=== PATIENT | male | born 1935 | race Caucasian/White ===

== ENCOUNTER 2019-07-27 05:24 | Day surgery (SDC) | payer MEDICARE, OTHER, SELFPAY ==
[2019-07-23 08:00] VITALS: BMI 26.9
[2019-07-27 05:52] VITALS: BP 121/69; PULSE 82; RESP 16; TEMP 36.7; O2SAT 97; BMI 26.4
[2019-07-27] MEDS: Lactated Ringers 1,000 ML 100 ML IV (06:16)
--- NOTE | 2019-07-27 06:26 | PCM.HP.BLA ---
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 Is patient in pain?: No Allergies No Known Allergies Allergy (Unverified 07/23/19 08:01) Medications amlodipine 10 mg tablet PO #90 tab 07/23/19 [History Confirmed 07/23/19] aspirin 81 mg tablet,delayed release 81 mg PO DAILY 07/23/19 [History Confirmed 07/23/19] lisinopril 20 mg-hydrochlorothiazide 12.5 mg tablet PO #90 tab 07/23/19 [History Confirmed 07/23/19] metformin 1,000 mg tablet PO #180 tab 07/23/19 [History Confirmed 07/23/19] simvastatin 20 mg tablet PO #90 tab 07/23/19 [History Confirmed 07/23/19] PFSH Medical History Diabetes (Acute) High cholesterol (Acute) HTN (hypertension) (Chronic) Surgical History H/O removal of cyst (Acute) Family History Grandfather Diabetes Social History (Updated 07/23/19 @ 08:11 by Salas Goyal MD) Smoking Status: Former smoker alcohol intake: never HPI HPI HPI: QASIM ROSALES, is a 83 M who presents to the office today for HPI HPI Surgical H&P: Yes HPI: QASIM ROSALES, is a 83 M who presents to the office today for surgical consultation regarding recent onset of rectal bleeding. The patient was referred by his primary care is Dr. Brody Goyal iii third and written compromise surgical consult recommendations will return to him. The patient states that initially noticed what he thought was some pretty dark red material in the commode and on the tissue paper. On a subsequent episode it seemed to be more bright red. He could not feel any palpable mass. Did not detect any reducible hemorrhoid. Did not have any pain. He has not had a heart attack or stroke. He himself has been on a low-dose aspirin. That has subsequently been stopped. He likes eating his donuts. He likes strawberry shortcake and peach cobbler. He has not had any abdominal surgery. He has not had any bouts of diverticular disease. He has not had any unexpected weight loss. ROS General General: No weight change, appetite, fatigue, colon cancer, breast cancer or weakness HEENT HEENT: No difficulty swallowing, eye injury, eye surgery, swollen glands or hoarseness Endo Endocrine: Yes diabetes mellitus; no thyroid disease, thyroid cancer, Hair loss, heat intolerance or cold intolerance Skin Skin: No rash or changing moles Breast Breast: No left breast lump, right breast lump, nipple discharge, breast pain, abnormal mammogram, abnormal US or breast enlargement Musc Musculoskeletal: Yes arthritis; no back problems, rheumatoid arthritis, gout or joint pain Cardio Cardiovascular: Yes high blood pressure; no murmur, pacemaker, heart disease, atrial fibrillation, heart attack, heart stent, palpitations, shortness of breat with exertion or chest pain Psych Psychiatric: No depression, anxiety or hearing voices Resp Respiratory: Yes shortness of breath, No sleep apnea, No cough, No COPD, No asthma, No emphysema, No wheezing Gastro Gastrointestinal: No abdominal pain, No nausea or vomiting, Yes diarrhea, No constipation, Yes blood in stool, Yes acid reflux, Yes hemorrhoids, No ulcers, No gallbladder problem, No black,tarry stools Philippe Hematologic: No blood thinners, No blood disorders, Yes bleeding, No anemia, No blood clots Neuro Neurologic: No system reviewed and no additional complaints, except as docu, No as per HPI, No abnormal walking, No abnormal hearing, No abnormal movements, No abnormal speech, No behavioral changes, No burning sensations, No confusion, No seizure-like activity, No unsteadiness, No dizziness, No localized weakness, No frequent falls, No headache(s), No lack of coordination, No loss of vision, No memory loss, No numbness, No other visual disturbances, No radiating pain, No restless legs, No sensory deficit, No fainting, No tingling, No tremor(s), No weakness, No other Exam Const General: cooperative, healthy appearing, comfortable, no acute distress Nutritional Appearance: average body habitus Orientation: alert, awake, oriented x3 HENMT Head: normal to inspection Chest Chest palpation & inspection: normal inspection of the chest Breast Palpation: No nipple discharge Resp Effort & Inspection: normal respiratory effort Auscultation: clear to auscultation bilaterally Cardio Rate: regular rate Rhythm: regular rhythm Heart Sounds: no murmurs GI Palpation: soft, no hepatosplenomegaly Auscultation: normal bowel sounds Neuro Cognition: normal cognition Other: Hard of hearing Extrem General: no calf tenderness bilaterally Psych Affect: normal affect Assessment & Plan Problems 1. Rectal bleeding K62.5 Plan 83-year-old gentleman. His previous colonoscopy was performed by myself June 28, 2014. At that point I noted a small polyp of the cecum. He had multiple diverticula noted throughout the entire colon. The cecal polyp simply showed colonic mucosa with lymphoid aggregate no evidence of dysplasia. I recommended the patient a colonoscopy with possible biopsy or polypectomy as indicated. On his previous examination it required 100 mg [place] 5 mg of Versed. We will on this occasion utilize monitored anesthesia care. He is aware of the technique, benefits, risks and alternatives. The patient has automatically stopped his low-dose aspirin. He denies history of cardiac or central neurologic disease. It may be reasonable that he stay off the aspirin long-term. He is instructed to follow-up that question with Dr. Brody Goyal III. CC: Dr. Brody Goyal III I appreciate the opportunity of assisting with surgical care Salas Goyal M.D., F.A.C.S. Coding Level of Care Code 34606 Diagnoses Rectal bleeding K62.5 07/23/19 0811 <Electronically signed by Salas Goyal MD> Date Salas Goyal MD Cosigner Signature: Date (if applicable) CC: Brody Goyal III, MD ~ I have re-examined the patient. There are no clinical changes since date of exam.
--- NOTE | 2019-07-27 06:30 | COLBX_PTH ---
PATIENT: QASIM ROSALES LOC: EN U#:[id number] AGE/SX: 83/M ROOM: RE07/27/[address]: Dr. Salas Goyal MD : 1935 BED: DIS: 07/27/2019 SPEC #: [id number] RECD: 07/27/19 12:16 STATUS: MAI WES #: [id number] CHRISTOPHER: 07/27/19 06:[address]: Salas Goyal DEPT: SURGICAL PATHOLOGY RECD BY: Chikis Natarajan ENTERED: 07/27/19 13:01 SP TYPE: COLON BX OTHR DR: Dr. Brody Goyal III, MD Tissues: Rectum, NOS Procedures: Surgery Specimen Level IV HEADER OPERATION: Colonoscopy (MAC) PRE-OP DIAGNOSIS: Rectal bleeding TISSUE SUBMITTED: Proximal rectum polyp MICROSCOPIC DIAGNOSIS Proximal rectal polyp, biopsy: Tubular adenoma. AM:sada 07/28/19 MICROSCOPIC DESCRIPTION Slides are reviewed. GROSS DESCRIPTION Received in fixative is one container labeled with the patient's name and designated proximal rectum polyp. The specimen consists of one irregular fragment of light castro soft tissue that measures 0.5 x 0.4 x 0.1 cm. The specimen is totally submitted in one cassette. A few fragments of fecal material are also noted. The specimen is totally submitted in one cassette. / SJ:rg 07/27/19 TC:5 [facility]: [id number]
[2019-07-27 06:55] VITALS: BP 121/69; BP 131/69; PULSE 64; RESP 18; TEMP 36.4; O2SAT 95
--- NOTE | 2019-07-27 06:59 | OP.ENDO_ITS ---
07/27/2019 Brody Goyal [address] [place] [address] Re : Colonoscopy procedure for Nic Emerson Dear Dr. Goyal This procedure was performed on Saturday, July 27, 2019. My impressions and recommendations are as follows: Impressions : - Non-thrombosed external hemorrhoids, non-thrombosed internal hemorrhoids, internal hemorrhoids that prolapse with straining, but require manual replacement into the anal canal (Grade III) and enlarged prostate found on digital rectal exam. - One 4 mm polyp in the rectum, removed with a cold snare. Resected and retrieved. - Diverticulosis in the entire examined colon. Recommendations : - Discharge patient to home. - Resume previous diet. - Continue present medications. - Repeat colonoscopy in 5 years for surveillance based on pathology results. - Telephone my office for pathology results in 1 week. Internal hemorrhoids likely source of rectal bleeding. Bleeding has stopped since he has been off the aspirin. Consider office followu if surgical treatment of hemorrhoids desired (ppH hemorrhoidopexy) My findings are described in the full procedure note, which is enclosed. If I can be of further assistance, please feel free to contact me at Doctor phone number(s): Work: . Sincerely, Salas Goyal MD 07/27/2019 6:59:06 AM This report has been signed electronically.
[2019-07-27 07:00] VITALS: BP 121/69; BP 126/68; PULSE 66; RESP 18; O2SAT 95
[2019-07-27 07:05] VITALS: BP 121/69; BP 128/74; RESP 18; O2SAT 97
[2019-07-27 07:06] LABS: Bedside Glucose 155 mg/dL (70-110)
[2019-07-27 07:10] VITALS: BP 121/69; BP 125/65; PULSE 67; RESP 18; TEMP 36.6; O2SAT 97
[2019-07-27 07:20] VITALS: BP 121/69
== END 2019-07-27 07:36 | disposition home or self-care (01) ==
LOC: EN 05:24 → AC 05:25
PROVIDERS: Family Provider Family Medicine; PCP Family Medicine; Referring Provider Family Medicine; Visit Provider Surgery
PROC: 0DJD8ZZ Inspection of Lower Intestinal Tract, Via Natural or Artificial Opening Endoscopic (ICD-10-PCS; CPT 45378; principal; 2019-07-27 06:25)
DX: D12.8 Benign neoplasm of rectum (principal); K64.2 Third degree hemorrhoids; K57.30 Diverticulosis of large intestine without perforation or abscess without bleeding; E11.9 Type 2 diabetes mellitus without complications; I10 Essential (primary) hypertension; E78.00 Pure hypercholesterolemia, unspecified; Z87.891 Personal history of nicotine dependence; Z79.84 Long term (current) use of oral hypoglycemic drugs; Z79.82 Long term (current) use of aspirin; Z79.899 Other long term (current) drug therapy; Z86.010 Personal history of colon polyps
CPT/HCPCS: 45380; 82962; 88305; J7120

== ENCOUNTER 2020-11-17 09:32 | Outpatient (RCR) | payer MEDICARE, OTHER, SELFPAY | END 2020-11-17 23:59 | LOC: IMMUN 09:32 | PROVIDERS: PCP Family Medicine; Visit Provider Family Medicine | DX: Z23 Encounter for immunization (principal) | CPT/HCPCS: 0011A; 0012A; 91301 ==

== ENCOUNTER 2021-11-07 13:06 | Outpatient (CLI) | payer MEDICARE, OTHER, SELFPAY | END 2021-11-07 23:59 | disposition short-term general hospital (02) | LOC: LABSPEC 13:08 | PROVIDERS: Referring Provider Physician Assistant Surgical; Visit Provider Physician Assistant Surgical | DX: Z11.52 Encounter for screening for COVID-19 (principal) | CPT/HCPCS: 87635; U0003; U0005 ==

== ENCOUNTER 2023-02-15 10:56 | Outpatient (CLI) | payer MEDICARE, OTHER, SELFPAY ==
[2023-02-15 12:15] LABS: Absolute Lymphocyte Count 1.45 X10^3/uL (0.83-4.51); Absolute Neutrophil Count 4.6 X10^3/uL (2.0-7.7); Basophil# 0.07 X10^3/uL; Eosinophil# 0.19 X10^3/uL; Eosinophils% 2.8 % (0-5); Hematocrit 46.9 % (40-54); Hemoglobin 15.6 g/dL (13.0-16.5); Lymphocyte # 1.45 X10^3/ul (0.83-4.51); Lymphocyte % 21.3 % (19-41); Mean Corp Hgb Conc 33.3 g/dL (32-36); Mean Corpuscular Hgb 30.7 pg (27.0-32.0); Mean Corpuscular Volume 92.3 fL (80-94); Mean Platelet Vol. 11.5 fl (6.2-12.0); Monocyte# 0.45 X10^3/uL; Monocyte% 6.6 % (0-10); NRBC Flagged by Analyzer 0 % (0-5); Neutrophil # 4.64 X10^3/uL (2.7-7.7); Platelet Count 170 K/mm3 (150-450); RBC Distribution Width CV 12.5 % (11.6-14.6); RBC Distribution Width SD 42.7 fl (35.1-43.9); Red Blood Count 5.08 M/mm3 (4.6-6.2); White Blood Count 6.8 K/mm3 (4.4-11.0)
[2023-02-15 12:25] LABS: Bacteria 0 SEEN /hpf (None Seen); Mucous, Urine 0 SEEN /hpf (<or=2+); Red Blood Cells-Urine 0 SEEN /hpf (0-5); Squamous Epithelial Cells - UA 0 SEEN /hpf (0-5); White Blood Cells 0 SEEN /hpf (0-5)
[2023-02-15 12:49] LABS: PTHIN 50.8 pg/mL (18.4-80.1)
[2023-02-15 12:51] LABS: Vitamin D,25 Hydroxy 53.8 ng/mL
[2023-02-15 12:56] LABS: Hemoglobin A1c 7.4 % (3.8-5.6)
[2023-02-15 13:05] LABS: ALB/GLOB Ratio 1.2 RATIO (0.9-2.4); AST(SGOT) 22 U/L (15-37); Alanine Aminotransfer ALT/SGPT 35 U/L (16-61); Albumin, Serum 4.1 g/dL (3.2-5.0); Alkaline Phosphatase 40 U/L (45-117); Anion Gap 7 (5-15); BUN 22 mg/dL (7-18); BUN/Creat Ratio 15.9 RATIO (10-20); Calcium,Total 9.4 mg/dL (8.5-10.1); Chloride 104 mmol/L (98-107); Cholesterol 176 mg/dL (200); Creatinine, Serum 1.38 mg/dL (0.70-1.30); EST Glomerular Filtration Rate 52 mL/min (>60); Est Glom Filt Rate - Afr Amer 63 mL/min (>60); Globulin 3.3 g/dL (2.2-4.2); Glucose 142 mg/dL (74-106); High Density Lipoprotein 58 mg/dL; Phosphorus 2.9 mg/dL (2.5-4.9); Potassium 3.7 mmol/L (3.5-5.1); Protein, Total 7.4 g/dL (6.4-8.2); Sodium Level 135 mmol/L (136-145); Thyroid Stim Hormone (TSH) 2.92 uIU/mL (0.358-3.74); Triglycerides 171 mg/dL; Very Low Density Lipoprotein 34 mg/dL (5-40)
[2023-02-15 15:54] LABS: Color, Urine Yellow (Yellow); Glucose, Dipstick Normal (Normal); Ketone-Dipstick Negative (Negative); Leukocyte Esterase-Dipstick Negative /ul (Negative); Nitrite-Dipstick Negative (Negative); Occult Blood-Urine Negative /ul (Negative); Protein-Dipstick Negative (Negative); Specific Gravity, Urine 1.015 (1.002-1.030); Urine Bilirubin Dipstick Negative (Negative); Urine Clarity Clear (Clear); Urine Urobilinogen Normal (Normal)
[2023-02-15 16:35] LABS: Microalbumin,Random Urine 35.3 mg/L (NO RANGE EST.); Microalbumin:Creatinine Ratio 32.7 mg/g CRE (<30 mg/g CRE); Protein:Creat Ratio 139 mg/g CRE (0-200)
[2023-03-31 08:08] LABS: PSA, Free 1.92 ng/mL; PSA, Free % 30.2 % (.)
== END 2023-02-15 23:59 | disposition home or self-care (01) ==
LOC: MFPLAB 10:57
PROVIDERS: Visit Provider Family Medicine
DX: E11.22 Type 2 diabetes mellitus with diabetic chronic kidney disease (principal); N18.30 Chronic kidney disease, stage 3 unspecified; R97.20 Elevated prostate specific antigen [PSA]
CPT/HCPCS: 36415; 80053; 80061; 81001; 82043; 82306; 82570; 83036; 83970; 84100; 84153; 84154; 84156; 84443; 85025

== ENCOUNTER → 2023-03-28 | Outpatient (CLI) | payer MEDICARE, OTHER, SELFPAY | END | disposition home or self-care (01) | LOC: MFPLAB 11:49 | PROVIDERS: PCP Family Medicine; Visit Provider Family Medicine | DX: Z00.00 Encounter for general adult medical examination without abnormal findings (principal) ==

== ENCOUNTER → 2023-07-11 | Outpatient (CLI) | payer MEDICARE, OTHER, SELFPAY ==
--- NOTE | 2023-07-11 16:29 | RAD_ITS ---
EXAM: XR CHEST, 2 VIEWS CLINICAL INDICATION: BRONCHITIS TECHNIQUE: Frontal and lateral views of the chest. COMPARISON: No relevant prior studies available. FINDINGS: LUNGS AND PLEURAL SPACES: Unremarkable. No consolidation or edema. No pneumothorax. No effusion. HEART: Unremarkable. Cardiac silhouette not enlarged. MEDIASTINUM: Central airways and mediastinal contour are unremarkable. BONES/JOINTS: Unremarkable. SOFT TISSUES: Unremarkable. RAD/Chest PA and Lateral IMPRESSION: No radiographic evidence of acute cardiopulmonary disease. Electronically Signed: Kris Nichols MD at 18:18 EDT ,
[2023-07-11 16:31] LABS: Bacteria 0 SEEN /hpf (None Seen); Mucous, Urine 0 SEEN /hpf (<or=2+); Red Blood Cells-Urine 0 SEEN /hpf (0-5); Squamous Epithelial Cells - UA 0 SEEN /hpf (0-5)
[2023-07-11 17:50] LABS: Color, Urine Yellow (Yellow); Glucose, Dipstick Normal (Normal); Ketone-Dipstick Negative (Negative); Leukocyte Esterase-Dipstick 25 /ul (Negative); Nitrite-Dipstick Negative (Negative); Occult Blood-Urine Negative /ul (Negative); Protein-Dipstick 15 mg/dl (Negative); Urine Bilirubin Dipstick Negative (Negative); Urine Clarity Clear (Clear); Urine Urobilinogen 1 mg/dl (Normal)
[2023-07-11 18:08] LABS: White Blood Cells 0-5 SEEN /hpf (0-5)
[2023-07-11 18:20] LABS: ALB/GLOB Ratio 1.1 RATIO (0.9-2.4); AST(SGOT) 15 U/L (15-37); Alanine Aminotransfer ALT/SGPT 30 U/L (16-61); Albumin, Serum 4.1 g/dL (3.2-5.0); Alkaline Phosphatase 45 U/L (45-117); Anion Gap 5 (5-15); BUN 26 mg/dL (7-18); BUN/Creat Ratio 15.7 RATIO (10-20); CRP < 2.90 mg/L (0.0-3.0); Calcium,Total 9.6 mg/dL (8.5-10.1); Chloride 109 mmol/L (98-107); Cholesterol 126 mg/dL (200); Creatinine, Serum 1.66 mg/dL (0.70-1.30); EST Glomerular Filtration Rate 42 mL/min (>60); Est Glom Filt Rate - Afr Amer 51 mL/min (>60); Globulin 3.7 g/dL (2.2-4.2); Glucose 112 mg/dL (74-106); High Density Lipoprotein 45 mg/dL; Phosphorus 3.6 mg/dL (2.5-4.9); Protein, Total 7.8 g/dL (6.4-8.2); Sodium Level 141 mmol/L (136-145); Triglycerides 199 mg/dL; Very Low Density Lipoprotein 40 mg/dL (5-40)
[2023-07-11 18:24] LABS: Absolute Lymphocyte Count 1.81 X10^3/uL (0.83-4.51); Absolute Neutrophil Count 4.9 X10^3/uL (2.0-7.7); Basophil# 0.04 X10^3/uL; Basophil% 0.5 % (0-1); Eosinophil# 0.27 X10^3/uL; Eosinophils% 3.6 % (0-5); Hematocrit 47.4 % (40-54); Hemoglobin 15.2 g/dL (13.0-16.5); Lymphocyte # 1.81 X10^3/ul (0.83-4.51); Lymphocyte % 23.8 % (19-41); Mean Corp Hgb Conc 32.1 g/dL (32-36); Mean Corpuscular Hgb 29.9 pg (27.0-32.0); Mean Corpuscular Volume 93.1 fL (80-94); Mean Platelet Vol. 11.4 fl (6.2-12.0); Monocyte# 0.58 X10^3/uL; Monocyte% 7.6 % (0-10); NRBC Flagged by Analyzer 0 % (0-5); Neutrophil # 4.88 X10^3/uL (2.7-7.7); Neutrophil % 64.2 % (47-70); Platelet Count 205 K/mm3 (150-450); RBC Distribution Width CV 12.3 % (11.6-14.6); RBC Distribution Width SD 42.4 fl (35.1-43.9); Red Blood Count 5.09 M/mm3 (4.6-6.2); White Blood Count 7.6 K/mm3 (4.4-11.0)
[2023-07-11 18:46] LABS: Vitamin D,25 Hydroxy 45.7 ng/mL
[2023-07-11 19:49] LABS: Microalbumin:Creatinine Ratio 12.9 mg/g CRE (<30 mg/g CRE); Protein, Urine (Random) 12.7 mg/dL (<11.9); Protein:Creat Ratio 63 mg/g CRE (0-200)
== END | disposition home or self-care (01) ==
LOC: MTLAB 16:27
PROVIDERS: PCP Family Medicine; Visit Provider Family Medicine
DX: J40 Bronchitis, not specified as acute or chronic (principal); E11.65 Type 2 diabetes mellitus with hyperglycemia; E11.22 Type 2 diabetes mellitus with diabetic chronic kidney disease; E55.9 Vitamin D deficiency, unspecified; N18.9 Chronic kidney disease, unspecified
CPT/HCPCS: 71046; 80053; 80061; 81001; 82043; 82306; 82570; 83036; 84100; 84156; 85025; 86140

== ENCOUNTER → 2023-08-07 | Outpatient (CLI) | payer MEDICARE, OTHER, SELFPAY ==
--- NOTE | 2023-08-08 10:00 | PFT ---
INTRODUCTION: The patient is an 87-year-old male who presents for pulmonary function studies secondary to a diagnosis of cough. Respiratory therapy reported good patient effort. Bronchodilators were used during testing. INTERPRETATION: Forced expiration spirometry demonstrates the presence of a mild large airways obstructive ventilatory defect. There was no significant response to aerosolized bronchodilators. Body plethysmography was performed and revealed an elevated RV to 129% of predicted, suggestive of underlying air trapping. Diffusing capacity by single breath CO was within normal limits. IMPRESSION: Irreversible mild large airways obstructive ventilatory defect with associated air trapping.
== END | disposition home or self-care (01) ==
LOC: PSN 07:51
PROVIDERS: PCP Family Medicine; Referring Provider Family Medicine; Visit Provider Family Medicine
DX: R05.9 Cough, unspecified (principal)
CPT/HCPCS: 94060; 94726; 94729

== ENCOUNTER 2023-10-23 09:05 | Emergency (ER) | payer MEDICARE, OTHER, SELFPAY ==
[2023-10-23 09:05] VITALS: BP 123/66; PULSE 80; RESP 16; TEMP 36.5; O2SAT 95; BMI 27.3
--- NOTE | 2023-10-23 09:16 | RAD_ITS ---
STUDY: X-RAY CHEST REASON FOR EXAM: Male, 87 years old. Cough. TECHNIQUE: Frontal and lateral views of the chest. COMPARISON: July 11, 2023 FINDINGS: Stable hyperinflation with hyperlucency. There is no demonstrated pleural abnormality. Mild cardiomegaly unchanged. Normal mediastinum and felisa. Normal visualized pulmonary arteries. Stable aortic tortuosity with calcification. Diffuse mild thoracic spondylosis unchanged. Normal visualized ribs, clavicles, and shoulders. There is no demonstrated abnormality of the visualized soft tissue structures of the upper abdomen. RAD/Chest PA and Lateral IMPRESSION: Stable mild cardiomegaly with hyperinflation and hyperlucency. No active or acute cardiopulmonary disease. Electronically Signed: José Garcia MD at 9:43 EST ,
--- NOTE | 2023-10-23 09:17 | EX.ED.VIS.UR ---
HPI HPI - URI History of Present Illness Chief Complaint: Cold Sx Narrative Narrative: 87-year-old male past medical history of hypertension, hypercholesterolemia presents with 1 day of upper respiratory infection type symptoms. He presents with his who states that she was here a few days ago and was diagnosed with pneumonia. They state that also a few days ago they spent all day at the [facility] and now everyone is sick . This includes her daughter as well. Patient complains of cough with loose phlegm production. He denies any fevers and may have been chilled last evening. He may also have minor shortness of breath. He denies any exacerbating or alleviating symptoms. ROS ROS ED ROS Narrative Constitutional: No fever, slight chills. HEENT: No sore throat. No neck pain. No loss of vision. Rhinorrhea and nasal congestion Cardiovascular: No chest pain. No palpitations. No pedal edema. Respiratory: Today have occasionally productive cough, minimal shortness of breath. Abdominal: No abdominal pain. No nausea. No vomiting. Genitourinary: No dysuria. No hematuria. Musculoskeletal: No myalgias. No arthralgias. Neurologic: No headaches. No dizziness. No lightheadedness. Skin: No rash. No change in color. Psychiatric: No depression. No anxiety. [facility] Medical History (Updated 10/23/23 @ 10:37 by Adriano Meehan MD) Diabetes High cholesterol HTN (hypertension) Rectal bleeding Home Medications amlodipine 10 mg tablet 10 mg PO DAILY #90 tabs 07/23/19 [History Last Taken 07/27/19] aspirin 81 mg tablet,delayed release 81 mg PO DAILY 07/23/19 [History Last Taken 07/19/19] lisinopril 20 mg-hydrochlorothiazide 12.5 mg tablet 20 mg PO DAILY #90 tabs 07/23/19 [History Last Taken Unknown] metformin 1,000 mg tablet 1,000 mg PO BID #180 tabs 07/23/19 [History Last Taken Unknown] simvastatin 20 mg tablet 20 mg PO QHS #90 tabs 07/23/19 [History Last Taken Unknown] Allergy/AdvReac Type Severity Reaction Status Date / Time No Known Allergies Allergy Verified 07/27/19 05:49 Family History Grandfather Diabetes Surgical History H/O removal of cyst Social History Smoking Status: Former smoker alcohol intake: never EXAM Physical Exam Narrative Exam Narrative: Afebrile. Vital signs noted. HEENT: Normocephalic. Atraumatic. PERRL, EOMI. Neck soft and supple. No point tenderness or step off. Cardiovascular: Regular rate and rhythm. No murmurs, rubs, or gallops appreciated. Respiratory: No tachypnea. No expiratory wheeze right base. Moving a good amount of air. Speaking in full sentences. Gastrointestinal: Abdomen soft, nontender, with normoactive bowel sounds. No rebound or guarding. Neurological: Awake. Alert. Nonfocal, nonlateralizing. Skin: No rash. Normal color. No pallor. Musculoskeletal: No pedal edema. Full range of motion extremities. Const Vital Signs: 10/23/23 09:05 10/23/23 09:05 10/23/23 09:45 Temperature 97.7 F L Temperature Source Temporal Pulse Rate 80 Respiratory Rate 16 Respiratory Effort Short of Breath Respiratory Pattern Normal Blood Pressure 123/66 H Blood Pressure Mean 85 Pulse Ox 95 96 Oxygen Delivery Method Room Air Room Air MDM MDM MDM Narrative Medical decision making narrative: Concern is for bronchitis versus pneumonia versus viral syndrome. Patient will be given albuterol MDI. No feel laboratory work is indicated, but two-view chest x-ray will be obtained as well as COVID and influenza swab. Chest x-ray interpreted by myself independently shows no evidence of pneumonia or consolidation, no pneumothorax. I reviewed the radiology report which confirms my independent interpretation. Additionally, I reviewed his respiratory swabs and he is positive for COVID. I do not feel antibiotics are indicated. At this point in time, upon repeat examination, he states he feels better than he did last night. I feel he be discharged safely home with follow-up. I do not feel he requires Decadron at this time, I do not feel he requires admission for his COVID. Treatment will be symptomatic. Return instructions to the emergency department were reviewed. Disposition is discharged home in stable condition. History & Record Review Discussion w/independent historian: Patient and Family () Additional record(s) reviewed:: No prior records Lab Data Attestation: I reviewed the patient's lab results. Lab results narrative: COVID-positive Radiography Diagnostic Testing: Clinical Impression(s) from Imaging Studies Chest X-Ray 10/23/23 09:16 IMPRESSION: Stable mild cardiomegaly with hyperinflation and hyperlucency. No active or acute cardiopulmonary disease. Electronically Signed: José Garcia MD at 9:43 EST , Discharge Plan Triage Chief Complaint: Cold Sx ED Provider: Adriano Meehan Dx/Rx/DC Orders Clinical Impression: COVID, Viral syndrome Instructions: Coronavirus Disease 2019 (COVID-19): Prevention, Coronavirus Disease 2019 (COVID-19): Caring for Yourself or Others, ED Viral Syndrome (Adult) Prescriptions: No Action metformin 1,000 mg tablet 1,000 mg PO BID Qty: 180 Patient Comments: TAKE 1 TABLET BY MOUTH TWICE DAILY amlodipine 10 mg tablet 10 mg PO DAILY Qty: 90 Patient Comments: TAKE 1 TABLET BY MOUTH ONCE DAILY lisinopril-hydrochlorothiazide 20-12.5 mg tablet 20 mg PO DAILY Qty: 90 Patient Comments: TAKE 1 TABLET BY MOUTH ONCE DAILY simvastatin 20 mg tablet 20 mg PO QHS Qty: 90 Patient Comments: TAKE 1 TABLET BY MOUTH ONCE DAILY AT BEDTIME aspirin 81 mg tablet,delayed release (DR/EC) 81 mg PO DAILY Primary Care Provider: Osorio Sapp Referrals: Osorio Sapp MD [Primary Care Provider] - 1 Week if not improving Disposition Disposition: Home, Self Care
[2023-10-23] MEDS: Albuterol Sulfate 8 gm Inhaler (60 puffs) 2 PUFF INHALATION (09:39)
[2023-10-23 09:45] VITALS: O2SAT 96
[2023-10-23 10:45] VITALS: BP 134/76; PULSE 64; RESP 14; TEMP 36.4; O2SAT 99
--- OUTSIDE RECORDS SUMMARY | 2023-10-23 11:05 | XMS RPT_ITS | CCD ---
Author Name Unknown Address [facility] [place] [address] Organization [facility] Results Test Name Value Interpretation Reference Range Facil ity Clinical Note 10-05-2021 Note Date & Type Note Facility 10-05-2021 Note Patient Outreach (KARMA TNAV) QASIM ROSALES ([id number]) 1935 M Date Time Provider Department 10/05/21 BERNICE GALLARDO During your visit today, we recorded the following information about you: Bernice Gallardo Population Health Navigator 10/05/2021 9:41 AM Signed POPULATION HEALTH NAVIGATION OUTREACH Action/FYI I spoke with the patient he no longers goes to the [facility] Updated PCP Contact made with patient or family member? YES Pt identified by name and : YES Outreach Outcome/Action Spoke to patient or caregiver: PCP confirmed / updated Patient declined Reason for Outreach Attribution: Provider Off-boarding Payer: Payor: MEDICARE / Plan: MEDICARE A AND B / Product Type: Medicare / Care Gap Reviewed:: Reminder: Reminder note to check Health Maintenance for items below Health Maintenance items due: COVID-19 VACCINE(1) Never done SHINGRIX VACCINE(1 of 2) Never done DTAP,TDAP,TD(3 - Tdap) due on 08/10/2018 LDL CHOLESTEROL due on 12/01/2020 HBA1C due on 12/04/2020 DILATED RETINAL EXAM due on 05/17/2021 URINE ALBUMIN:CREATININE RATIO due on 06/03/2021 DIABETIC FOOT EXAM due on 06/08/2021 INFLUENZA(1) due on 06/21/2021 Advanced Directives Completed: Have you ever planned for future healthcare decisions with a power of united states attorney, living will, or advance directives? No. Please bring a copy to your next appointment or email to [email or web address] Referrals: N/A Message Sent to Practice: NO Navigation Signature: Bernice Gallardo Population Health Navigator October 05, 2021 9:40 AM Allergies As of Date: 10/05/2021 Noted Allergy Reaction AMOXICILLIN 02/01/2006 Date Reviewed: 07/21/2020 Reviewed by: Leatha ([facility]) EVA Miller - Fully Assessed Reason for Visit: Population Health Navigation Outreach [3910] Cmt: Offboarding Prescriptions as of 10/05/2021 - blood sugar diagnostic (BLOOD GLUCOSE TEST) test strip Test blood sugar(s) 2-3 times daily. Dx: Type 2 DM - Controlled E11.9 Insulin: No One Touch Ultra - glimepiride (AMARYL) 1 mg tablet Take 1 tablet by mouth daily with breakfast. - Lancets lancets For testing blood sugars once daily E11.69 and Z79.899 - metFORMIN (GLUCOPHAGE) 500 mg tablet Take 1 tablet by mouth twice daily with meals. . - lisinopril-hydrochlorothiazide (PRINZIDE,ZESTORETIC) 20-12.5 mg per tablet Take 1 tablet by mouth once daily. - simvastatin (ZOCOR) 20 mg tablet Take 1 tablet by mouth daily at bedtime. - amLODIPine (NORVASC) 10 mg tablet Take 1 tablet by mouth once daily. - Blood-Glucose Meter misc 1 Device once daily. One Touch. Test blood sugar(s) one times daily. Dx: Type 2 DM - Controlled E11.9 Insulin: No - Obabefdbylatq-Tmfjellq-Fnmjgt (CENTRUM SILVER) ORAL Tab Take one(1) tablet daily. 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 Author Type: ? Type: Progress Notes Filed: 10/05/2021 9:41 AM Note Text: POPULATION HEALTH NAVIGATION OUTREACH Action/FYI I spoke with the patient he no longers goes to the [facility] Updated PCP Contact made with patient or family member? YES Pt identified by name and : YES Outreach Outcome/Action Spoke to patient or caregiver: PCP confirmed / updated Patient declined Reason for Outreach Attribution: Provider Off-boarding Payer: Payor: MEDICARE / Plan: MEDICARE A AND B / Product Type: Medicare / Care Gap Reviewed:: Reminder: Reminder note to check Health Maintenance for items below Health Maintenance items due: COVID-19 VACCINE(1) Never done SHINGRIX VACCINE(1 of 2) Never done DTAP,TDAP,TD(3 - Tdap) due on 08/10/2018 LDL CHOLESTEROL due on 12/01/2020 HBA1C due on 12/04/2020 DILATED RETINAL EXAM due on 05/17/2021 URINE ALBUMIN:CREATININE RATIO due on 06/03/2021 DIABETIC FOOT EXAM due on 06/08/2021 INFLUENZA(1) due on 06/21/2021 Advanced Directives Completed: Have you ever planned for future healthcare decisions with a power of united states attorney, living will, or advance directives? No. Please bring a copy to your next appointment or email to Referrals: N/A Message Sent to Practice: NO Navigation Signature: Bernice Sheetsi Population Health Navigator October 05, 2021 9:40 AM [facility] Summary Purpose Family History No Family History Records Found Advance Directives No Advanced Directives Records Found Additional Source Comments (unrecognized sect ion and content) No Status Records Found INFORMATION SOURCE (unrecogn ized section and content) FOR RECORDS PERTAINING TO PATIENTS WHO ARE OR HAVE BEEN ENROLLED IN A CHEMICAL DEPENDENCY/SUBSTANCEABUSE PROGRAM, SOME INFORMATION MAY BE OMITTED. This clinical summary was aggregated from multiple sources. Caution should be exercised in using it in the provision of clinical care. This summary normalizes information from multiple sources, and as a consequence, information in this document may materially change the coding, format and clinical context of patient data. In addition, data may be omitted in some cases. CLINICAL DECISIONS SHOULD BE BASED ON THE PRIMARY CLINICAL RECORDS. [employer] [facility]. provides no warranty or guarantee of the accuracy or completeness of information in this document.
== END 2023-10-23 11:03 | disposition home or self-care (01) ==
PROVIDERS: Emergency Provider Emergency Medicine; PCP Family Medicine; Visit Provider Emergency Medicine
DX: U07.1 COVID-19 (principal); E11.9 Type 2 diabetes mellitus without complications; B34.9 Viral infection, unspecified; Z87.891 Personal history of nicotine dependence
CPT/HCPCS: 71046; 87428; 94640; 99282

== ENCOUNTER → 2023-12-03 | Outpatient (CLI) | payer MEDICARE, OTHER, SELFPAY ==
[2023-12-03 10:35] LABS: Bacteria 0 SEEN /hpf (None Seen); Mucous, Urine 0 SEEN /hpf (<or=2+); Red Blood Cells-Urine 0 SEEN /hpf (0-5); Squamous Epithelial Cells - UA 0 SEEN /hpf (0-5); White Blood Cells 0 SEEN /hpf (0-5)
[2023-12-03 12:25] LABS: Color, Urine Yellow (Yellow); Glucose, Dipstick Normal (Normal); Ketone-Dipstick 5 mg/dl (Negative); Leukocyte Esterase-Dipstick 25 /ul (Negative); Nitrite-Dipstick Negative (Negative); Occult Blood-Urine Negative /ul (Negative); Protein-Dipstick 15 mg/dl (Negative); Specific Gravity, Urine 1.015 (1.002-1.030); Urine Bilirubin Dipstick Negative (Negative); Urine Clarity Clear (Clear); Urine Urobilinogen 4 mg/dl (Normal)
[2023-12-03 12:41] LABS: Vitamin D,25 Hydroxy 42.5 ng/mL
[2023-12-03 12:43] LABS: Absolute Lymphocyte Count 1.62 X10^3/uL (0.83-4.51); Absolute Neutrophil Count 5.3 X10^3/uL (2.0-7.7); Basophil# 0.06 X10^3/uL; Basophil% 0.8 % (0-1); Eosinophil# 0.31 X10^3/uL; Eosinophils% 3.9 % (0-5); Hematocrit 44.3 % (40-54); Hemoglobin 14.4 g/dL (13.0-16.5); Lymphocyte # 1.62 X10^3/ul (0.83-4.51); Lymphocyte % 20.5 % (19-41); Mean Corp Hgb Conc 32.5 g/dL (32-36); Mean Corpuscular Hgb 29.8 pg (27.0-32.0); Mean Corpuscular Volume 91.7 fL (80-94); Monocyte# 0.58 X10^3/uL; Monocyte% 7.3 % (0-10); NRBC Flagged by Analyzer 0 % (0-5); Neutrophil # 5.31 X10^3/uL (2.7-7.7); Neutrophil % 67.2 % (47-70); Platelet Count 209 K/mm3 (150-450); RBC Distribution Width CV 12.9 % (11.6-14.6); RBC Distribution Width SD 42.8 fl (35.1-43.9); Red Blood Count 4.83 M/mm3 (4.6-6.2); White Blood Count 7.9 K/mm3 (4.4-11.0)
[2023-12-03 12:45] LABS: Hemoglobin A1c 7.7 % (3.8-5.6)
[2023-12-03 12:47] LABS: ALB/GLOB Ratio 1.1 RATIO (0.9-2.4); AST(SGOT) 14 U/L (15-37); Alanine Aminotransfer ALT/SGPT 25 U/L (16-61); Alkaline Phosphatase 50 U/L (45-117); Anion Gap 8 (5-15); BUN 19 mg/dL (7-18); BUN/Creat Ratio 13.5 RATIO (10-20); Calcium,Total 9.6 mg/dL (8.5-10.1); Chloride 105 mmol/L (98-107); Cholesterol 141 mg/dL (200); Creatinine, Serum 1.41 mg/dL (0.70-1.30); EST Glomerular Filtration Rate 51 mL/min (>60); Est Glom Filt Rate - Afr Amer 61 mL/min (>60); Globulin 3.6 g/dL (2.2-4.2); Glucose 152 mg/dL (74-106); High Density Lipoprotein 54 mg/dL; Phosphorus 3.3 mg/dL (2.5-4.9); Potassium 4.1 mmol/L (3.5-5.1); Protein, Total 7.6 g/dL (6.4-8.2); Sodium Level 142 mmol/L (136-145); Triglycerides 197 mg/dL; Very Low Density Lipoprotein 39 mg/dL (5-40)
[2023-12-03 12:54] LABS: Microalbumin,Random Urine 37.9 mg/L (NO RANGE EST.); Protein, Urine (Random) 19.3 mg/dL (<11.9); Protein:Creat Ratio 112 mg/g CRE (0-200)
== END | disposition home or self-care (01) ==
LOC: MFPLAB 10:33
PROVIDERS: PCP Family Medicine; Visit Provider Family Medicine
DX: E11.65 Type 2 diabetes mellitus with hyperglycemia (principal); E11.22 Type 2 diabetes mellitus with diabetic chronic kidney disease; E55.9 Vitamin D deficiency, unspecified; N18.9 Chronic kidney disease, unspecified
CPT/HCPCS: 36415; 80053; 80061; 81001; 82043; 82306; 82570; 83036; 84100; 84156; 85025

== ENCOUNTER → 2023-12-09 | Outpatient (CLI) | payer MEDICARE, OTHER, SELFPAY ==
--- NOTE | 2023-12-09 10:55 | RAD_ITS ---
STUDY: X-RAY CHEST REASON FOR EXAM: Male, 87 years old. cough TECHNIQUE: PA and lateral COMPARISON: October 23, 2023 FINDINGS: Lungs are hyperinflated but clear.. There is no demonstrated pleural abnormality. Normal size heart. Normal mediastinum and felisa. Normal visualized pulmonary arteries. Mildly calcified aortic arch and descending thoracic aorta. Dorsal spine demonstrates changes consistent with ankylosing spondylitis. Normal visualized ribs, clavicles, and shoulders. There is no demonstrated abnormality of the visualized soft tissue structures of the upper abdomen. RAD/Chest PA and Lateral IMPRESSION: COPD. No acute cardiopulmonary pathology. Electronically Signed: Paramjit Vyas MD at 17:53 EST ,
--- OUTSIDE RECORDS SUMMARY | 2023-12-09 11:21 | XMS RPT_ITS | CCD ---
Author Name Unknown Address [facility] [address] [place] [address] Organization [facility] Results Test Name Value Interpretation Reference Range Facil ity Clinical Note 10-05-2021 Note Date & Type Note Facility 10-05-2021 Note Patient Outreach ([facility]) QASIM ROSALES ([id number]) 1935 M Date Time Provider Department 10/05/21 BERNICE GALLARDO During your visit today, we recorded the following information about you: Bernice Gallardo Population Health Navigator 10/05/2021 9:41 AM Signed POPULATION HEALTH NAVIGATION OUTREACH Action/FYI I spoke with the patient he no longers goes to the [facility] Updated PCP Contact made with patient or [...] future healthcare decisions with a power of disability attorney, living will, or advance directives? No. Please bring a copy to your next appointment or email to [email or web address] Referrals: N/A Message Sent to Practice: NO Navigation Signature: Bernice Gallardo Population Health Navigator October 05, 2021 9:40 AM Allergies As of Date: 10/05/2021 Noted Allergy Reaction AMOXICILLIN 02/01/2006 Date Reviewed: 07/21/2020 Reviewed by: Leatha ([facility]) EVA Miller - Fully Assessed Reason [...] DM - Controlled E11.9 Insulin: No - Nomnvgozljkpu-Xgmhqnhe-Znpbcx (CENTRUM SILVER) ORAL Tab Take one(1) tablet [...] POPULATION HEALTH NAVIGATOR, BERNICE Zhang on 10/05/21 [facility] Progress note 10-05-2021 Note Date & Type Note Facility 10-05-2021 Note HNO ID: [id number] Author: Bernice Gallardo Population Health Navigator Service: ? Author Type: ? Type: Progress Notes Filed: 10/05/2021 9:41 AM Note Text: POPULATION HEALTH NAVIGATION OUTREACH Action/FYI I spoke with the patient he no longers goes to the [facility] Updated PCP Contact made with patient or [...] future healthcare decisions with a power of disability attorney, living will, or advance directives? No. Please bring a copy to your next appointment or email to Referrals: N/A Message Sent to Practice: NO Navigation Signature: Bernice Sheetsi Population Health Navigator October 05, 2021 9:40 AM [facility] Summary Purpose Family History No Family History [...] BE BASED ON THE PRIMARY CLINICAL RECORDS. [employer] [facility]. provides no warranty or guarantee of the accuracy or completeness of information in this document.
== END | disposition home or self-care (01) ==
PROVIDERS: PCP Family Medicine; Referring Provider Family Medicine; Visit Provider Family Medicine
DX: J40 Bronchitis, not specified as acute or chronic (principal)
CPT/HCPCS: 71046

== ENCOUNTER → 2024-12-28 | Outpatient (CLI) | payer MEDICARE, OTHER, SELFPAY ==
[2024-12-28 12:52] LABS: Absolute Lymphocyte Count 1.61 X10^3/uL (0.83-4.51); Absolute Neutrophil Count 4.8 X10^3/uL (2.0-7.7); Basophil# 0.05 X10^3/uL; Basophil% 0.7 % (0-1); Eosinophil# 0.27 X10^3/uL; Eosinophils% 3.7 % (0-5); Hematocrit 43.7 % (40-54); Hemoglobin 15.1 g/dL (13.0-16.5); Lymphocyte # 1.61 X10^3/ul (0.83-4.51); Lymphocyte % 22.2 % (19-41); Mean Corp Hgb Conc 34.6 g/dL (32-36); Mean Corpuscular Hgb 31.6 pg (27.0-32.0); Mean Corpuscular Volume 91.4 fL (80-94); Monocyte# 0.51 X10^3/uL; NRBC Flagged by Analyzer 0 % (0-5); Neutrophil # 4.81 X10^3/uL (2.7-7.7); Neutrophil % 66.3 % (47-70); Platelet Count 192 K/mm3 (150-450); RBC Distribution Width CV 12.5 % (11.6-14.6); RBC Distribution Width SD 41.2 fl (35.1-43.9); Red Blood Count 4.78 M/mm3 (4.6-6.2); White Blood Count 7.3 K/mm3 (4.4-11.0)
[2024-12-28 12:59] LABS: Protein, Urine (Random) 18.9 mg/dL (0.0-12.0); Protein:Creat Ratio 139 mg/g CRE (0-200)
[2024-12-28 13:03] LABS: Hemoglobin A1c 8.3 % (<=5.6)
[2024-12-28 13:05] LABS: ALB/GLOB Ratio 1.6 RATIO (0.9-2.4); AST(SGOT) 18 U/L (<=37); Alanine Aminotransfer ALT/SGPT 16 U/L (<=46); Albumin, Serum 4.4 g/dL (3.4-4.8); Alkaline Phosphatase 42 U/L (40-129); Anion Gap 12 (5-15); BUN 23 mg/dL (4-19); BUN/Creat Ratio 15.9 RATIO (10-20); Calcium,Total 9.8 mg/dL (7.6-11.0); Carbon Dioxide 25.8 mmol/L (21.0-32.0); Chloride 102 mmol/L (98-108); Creatinine, Serum 1.42 mg/dL (0.70-1.20); EST Glomerular Filtration Rate 48 (>60); Globulin 2.7 g/dL (2.2-4.2); Glucose 159 mg/dL (70-99); Potassium 4.4 mmol/L (3.3-5.1); Protein, Total 7.1 g/dL (5.9-8.4); Sodium Level 140 mmol/L (133-145); Total Bilirubin 0.87 mg/dL (0.00-1.30)
[2024-12-28 13:22] LABS: Cholesterol 137 mg/dL (<=200); High Density Lipoprotein 48 mg/dL; Low Density Lipoprotein Calc. 50 mg/dL; Triglycerides 197 mg/dL; Very Low Density Lipoprotein 39 mg/dL (5-40); cholesterol:hdl ratio screen 2.85
== END | disposition home or self-care (01) ==
PROVIDERS: PCP Family Medicine; Referring Provider Family Medicine; Visit Provider Family Medicine
DX: Z00.00 Encounter for general adult medical examination without abnormal findings (principal); E11.9 Type 2 diabetes mellitus without complications; E78.5 Hyperlipidemia, unspecified; I10 Essential (primary) hypertension
CPT/HCPCS: 36415; 80053; 80061; 82570; 83036; 84156; 85025

== ENCOUNTER → 2025-03-22 | Outpatient (CLI) | payer MEDICARE, OTHER, SELFPAY ==
--- NOTE | 2025-03-22 11:45 | RAD_ITS ---
PROCEDURE: CHEST PA AND LATERAL 03/22/2025 REASON FOR EXAM: RULE OUT PNEUMONIA TECHNIQUE: Frontal and lateral views of the chest. COMPARISON: Chest x-ray studies dated 12/09/2023, 10/23/1999 FINDINGS: Hardware: None Heart: Heart size and configuration are within normal limits. Mediastinum: Pulmonary vasculature and hilar structures are unremarkable. Arteriosclerotic vascular disease of the aorta is noted. Lungs: Lungs are hyperinflated with flattening of the hemidiaphragms. This is a stable finding. There are central lucency in the upper lung zones. These findings can be associated with emphysema COPD. There is no atelectasis, consolidation, effusion or pneumonic infiltrate. Bones: Degenerative changes of the thoracic spine are noted. There appears to be possibly be diffuse idiopathic skeletal hyperostosis of the thoracic spine. RAD/Chest PA and Lateral IMPRESSION: Emphysematous COPD changes. No acute cardiopulmonary process is identified radiographically. 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 Reading Location: [id number]
== END | disposition home or self-care (01) ==
LOC: MTRAD 11:44
PROVIDERS: PCP Family Medicine; Referring Provider Nurse Practitioner Family; Visit Provider Nurse Practitioner Family
DX: R06.02 Shortness of breath (principal)
CPT/HCPCS: 71046

== ENCOUNTER → 2025-06-11 | Outpatient (CLI) | payer MEDICARE, OTHER, SELFPAY ==
--- NOTE | 2025-06-11 10:03 | RAD_ITS ---
PROCEDURE: CHEST PA AND LATERAL 06/11/2025 REASON FOR EXAM: COUGH, SOB, RULE OUT PNEUMONIA TECHNIQUE: CHEST PA AND LATERAL COMPARISON: PA and lateral chest 03/22/2025. RAD/Chest PA and Lateral IMPRESSION: Chronic lung changes and hyperinflation are again noted. No focal infiltrate is seen. No pleural effusion pneumothorax is evident. The cardiomediastinal silhouette is stable, without evidence of cardiomegaly. 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 No acute osseous change is seen. Reading Location: [place] [id number]
== END | disposition home or self-care (01) ==
LOC: MTRAD 10:01
PROVIDERS: PCP Family Medicine; Referring Provider Nurse Practitioner Family; Visit Provider Nurse Practitioner Family
DX: R06.02 Shortness of breath (principal)
CPT/HCPCS: 71046